=== PATIENT | male | born 1970 | race Caucasian/White ===

== ENCOUNTER 2016-05-08 06:53 | Day surgery (SDC) | payer BC, OTHER ==
[2016-05-07 14:42] VITALS: BMI 27.8
[2016-05-08] MEDS ORDERED: LIDOCAINE HCL/PF 2% SDV 5ML VIAL ONE (07:51)
[2016-05-08] MEDS ORDERED: SUCCINYLCHOLINE CHLORIDE 200 MG/10 ML VIAL ONE (07:51)
[2016-05-08] MEDS ORDERED: PROPOFOL 60 ML ONE (07:51)
[2016-05-08] MEDS ORDERED: ePHEDrine SULFATE 50 MG/1 ML AMPULE ONE (07:52)
[2016-05-08 08:35] VITALS: TEMP 98.3
[2016-05-08 08:56] VITALS: PULSE 89
[2016-05-08 09:09] VITALS: BP 147/87
--- NOTE | 2016-05-09 14:35 | PATH ---
Surgical Pathology Report Patient Name: ANA ROSA CHAUHAN [facility]. Rec. #: [id number] /Age/Gender: 1970 (Age: 45) / M Account: [id number] Location: [facility]-ENDOSCOPY Taken: 05/08/2016 Received: 05/08/2016 Reported: 05/09/2016 Physicians: Natasha Frazier M.D. Specimen(s) Received A: BX DISTAL ESOPHAGUS B: BX MID ESOPHAGUS Clinical History History of esophageal ulcer GERD-healed esophageal ulcer Final Diagnosis A. ESOPHAGUS, DISTAL, BIOPSY: SQUAMOUS EPITHELIUM WITH CHRONIC INFLAMMATION AND REFLUX TYPE CHANGES. NO COLUMNAR EPITHELIUM PRESENT (NO INTESTINAL METAPLASIA/WALLS'S ESOPHAGUS IDENTIFIED). B. ESOPHAGUS, MID, BIOPSY: SQUAMOUS EPITHELIUM WITH CHRONIC INFLAMMATION AND REFLUX TYPE CHANGES. NO EVIDENCE OF EOSINOPHILIC ESOPHAGITIS. Electronically Signed Segundo Norris M.D. Gross Description A. Received in formalin, labeled "biopsy distal esophagus" are 3 esquivel, irregular portions of soft tissue ranging from 0.1-0.4 cm in greatest dimension. The specimens are submitted in toto in one cassette. B. Received in formalin, labeled "biopsy midesophagus" are 2 esquivel, irregular portions of soft tissue measuring 0.3 and 0.4 cm in greatest dimension. The specimens are submitted in toto in one cassette. 05/08/201605/08/2016
== END 2016-05-08 09:11 | disposition home or self-care (01) ==
LOC: JASU-ENDO 06:53
PROVIDERS: ATTEND Internal Medicine Gastroenterology
PROC: 0DB28ZX Excision of Middle Esophagus, Via Natural or Artificial Opening Endoscopic, Diagnostic (ICD-10-PCS; 2016-05-08)
PROC: 0DB38ZX Excision of Lower Esophagus, Via Natural or Artificial Opening Endoscopic, Diagnostic (ICD-10-PCS; principal; 2016-05-08 08:00)
DX: K21.9 Gastro-esophageal reflux disease without esophagitis (principal); K44.9 Diaphragmatic hernia without obstruction or gangrene; R12 Heartburn; I10 Essential (primary) hypertension; Z86.010 Personal history of colon polyps; J45.909 Unspecified asthma, uncomplicated; J42 Unspecified chronic bronchitis; G47.30 Sleep apnea, unspecified; Z99.89 Dependence on other enabling machines and devices; J34.2 Deviated nasal septum
CPT/HCPCS: 88305-TC

== ENCOUNTER 2016-09-11 06:41 | Day surgery (SDC) | payer BC ==
[2016-09-10 13:11] VITALS: BMI 29.0
[2016-09-11] MEDS ORDERED: PROPOFOL 20 ML ONE ×3 (07:53)
[2016-09-11] MEDS ORDERED: LIDOCAINE HCL 2% (20ML MULTI-DOSE VIAL) NR ONE (07:53)
[2016-09-11 08:43] VITALS: TEMP 98.4
[2016-09-11 08:56] LABS: BASOPHIL 0.9 % (0-2.0); EOSINOPHIL 1.4 % (0-4.5); MCH 32.6 pg (25.7-33.7); MCHC 34.7 g/dl (32.0-35.9); MEAN CELL VOLUME 93.9 fl (80-96); MEAN PLT VOLUME 9.7 fl (7.5-11.1); PLATELET COUNT 258 K/MM3 (134-434); RDW 14.3 % (11.9-15.9)
[2016-09-11 09:18] VITALS: BP 126/73; PULSE 80
[2016-09-11 09:23] LABS: ANION GAP 7 (8-16); BILIRUBIN,TOTAL 0.9 mg/dL (0.2-1.0); CO2 32 mmol/L (21-32); CREATININE 0.7 mg/dL (0.7-1.3); GLUCOSE,RANDOM 87 mg/dL (74-106); SGPT/ALT 67 U/L (12-78); TOT PROT 7.6 g/dl (6.4-8.2)
[2016-09-11 09:24] LABS: ALK PHOS 69 U/L (45-117)
[2016-09-11 09:26] LABS: SGOT/AST 80 U/L (15-37)
--- NOTE | 2016-09-12 13:22 | PATH ---
Surgical Pathology Report Patient Name: ANA ROSA CHAUHAN [facility]. Rec. #: [id number] /Age/Gender: 1970 (Age: 45) / M Account: [id number] Location: [facility]-ENDOSCOPY Taken: 09/11/2016 Received: 09/11/2016 Reported: 09/12/2016 Physicians: Natasha Frazier M.D. Specimen(s) Received A: BX TERMINAL ILEUM B: BX CECUM C: BX RIGHT COLON D: BX TRANSVERSE COLON E: BX DESCENDING COLON F: BX SIGMOID G: BX RECTUM Clinical History Surveillance Ulcerative colitis Final Diagnosis A. TERMINAL ILEUM, BIOPSY: ILEUM MUCOSA WITH REACTIVE HYPERPLASIA OF MUCOSA ASSOCIATED LYMPHOID TISSUE. NO EVIDENCE OF ACTIVE INFLAMMATION, SIGINIFICANT ARCHITECTURAL DISTORTION, GRANULOMATA OR DYSPLASIA; NO INCREASE IN INTRAEPITHELIAL LYMPHOCYTES. B. COLON, CECUM, BIOPSY: COLONIC MUCOSA WITH FOCAL REACTIVE LYMPHOID AGGREGATE. NO EVIDENCE OF ACTIVE INFLAMMATION, SIGINIFICANT ARCHITECTURAL DISTORTION, GRANULOMATA OR DYSPLASIA; NO EVIDENCE OF MICROSCOPIC COLITIS. C. COLON, RIGHT, BIOPSY: COLONIC MUCOSA WITH REACTIVE LYMPHOID AGGREGATE AND MILD LAMINA PROPRIA EDEMA. NO EVIDENCE OF ACTIVE INFLAMMATION, SIGINIFICANT ARCHITECTURAL DISTORTION, GRANULOMATA OR DYSPLASIA; NO EVIDENCE OF MICROSCOPIC COLITIS. D. COLON, TRANSVERSE, BIOPSY: COLONIC MUCOSA WITH FOCAL MINIMAL CRYPT ALTERATION. NO EVIDENCE OF ACTIVE INFLAMMATION, GRANULOMATA OR DYSPLASIA. E. COLON, DESCENDING, BIOPSY: COLONIC MUCOSA WITHOUT SIGNIFICANT PATHOLOGIC CHANGES. NO EVIDENCE OF ACTIVE INFLAMMATION, SIGINIFICANT ARCHITECTURAL DISTORTION, GRANULOMATA OR DYSPLASIA; NO EVIDENCE OF MICROSCOPIC COLITIS. F. COLON, SIGMOID, BIOPSY: COLONIC MUCOSA WITH REACTIVE LYMPHOID AGGREGATES AND FOCAL MILD CRYPT ALTERATION. NO EVIDENCE OF ACTIVE INFLAMMATION, GRANULOMATA OR DYSPLASIA. G. RECTUM, BIOPSY: RECTAL MUCOSA WITH REACTIVE LYMPHOID AGGREGATES AND FOCAL MINIMAL CRYPT ALTERATION. NO EVIDENCE OF ACTIVE INFLAMMATION, GRANULOMATA OR DYSPLASIA. Comment: History of ulcerative colitis is noted. The histologic findings are compatible with quiescent colitis. Electronically Signed Segundo Norris M.D. Gross Description A. Received in formalin, labeled "biopsy terminal ileum" are two fragments of esquivel tissue with 0.3 cm in greatest dimension each. The specimen is submitted in toto in one cassette. B. Received in formalin, labeled "biopsy cecum one" are three fragments of esquivel tissue ranging from 0.2-0.3 cm in greatest dimension. The specimen is submitted in toto in one cassette. C. Received in formalin, labeled "biopsy right colon" are 4 fragments of esquivel tissue 0.2-0.3 cm in greatest dimension. The specimen is submitted in toto in one cassette. D. Received in formalin, labeled "biopsy transverse colon" are 3 esquivel fragments of tissue 0.3 cm in greatest dimension each. The specimen is submitted in toto in one cassette. E. Received in formalin, labeled "biopsy descending colon" are 4 esquivel fragments of tissue ranging from 0.2-0.4 cm in greatest dimension. The specimen is submitted in toto in one cassette. F. Received in formalin, labeled "biopsy sigmoid colon" are 5 fragments of tissue 0.2-0.4 cm in greatest dimension. The specimen is submitted in toto in one cassette. G. Received in formalin, labeled "biopsy rectum" are 2 fragments of tissue 0.4 cm in greatest dimension. The specimen is submitted in toto in one cassette. AF/09/11/2016 final/09/11/2016
== END 2016-09-11 09:37 | disposition home or self-care (01) ==
LOC: JASU-ENDO 06:41
PROVIDERS: ATTEND Internal Medicine Gastroenterology
PROC: 0DBE8ZX Excision of Large Intestine, Via Natural or Artificial Opening Endoscopic, Diagnostic (ICD-10-PCS; principal; 2016-09-11 08:00)
DX: Z12.11 Encounter for screening for malignant neoplasm of colon (principal)
CPT/HCPCS: 36415; 80053; 82306; 85025; 88305-TC

== ENCOUNTER 2017-09-17 07:03 | Day surgery (SDC) | payer BC ==
[2017-09-16 14:04] VITALS: BMI 28.1
[2017-09-17] MEDS ORDERED: PROPOFOL 20 ML ONE ×3 (08:01)
[2017-09-17 08:54] VITALS: TEMP 98.5
[2017-09-17 09:38] VITALS: BP 155/88; PULSE 81
--- NOTE | 2017-09-18 16:17 | PATH ---
Surgical Pathology Report Patient Name: ANA ROSA CHAUHAN [facility]. Rec. #: [id number] /Age/Gender: 1970 (Age: 46) / M Account: [id number] Location: [facility]-ENDOSCOPY Taken: 09/17/2017 Received: 09/17/2017 Reported: 09/18/2017 Physicians: Natasha Frazier M.D. Specimen(s) Received A: BX CECUM B: BX ILEOCECAL VALVE POLYPS C: BX RIGHT COLON D: BX TRANSVERSE COLON E: BX DESCENDING COLON F: BX SIGMOID G: BX RECTUM Clinical History History of ulcerative colitis Final Diagnosis A. CECUM, BIOPSY: COLONIC MUCOSA WITH MILD ACTIVE CHRONIC INFLAMMATION IN THE LAMINA PROPRIA, FOCAL ACUTE CRYPTITIS, AND REACTIVE LYMPHOID AGGREGATE. B. ILEOCECAL VALVE POLYPS, BIOPSY: POLYPOID COLONIC MUCOSA WITH NO DIAGNOSTIC ABNORMALITIES. C. RIGHT COLON, BIOPSY: COLONIC MUCOSA WITH FOCAL CRYPTAL DISTORTION. NO HISTOLOGIC EVIDENCE OF ACTIVE COLITIS. D. TRANSVERSE COLON, BIOPSY: COLONIC MUCOSA WITH REACTIVE LYMPHOID AGGREGATES. NO HISTOLOGIC EVIDENCE OF ACTIVE COLITIS. E. DESCENDING COLON, BIOPSY: COLONIC MUCOSA WITH FOCAL CRYPTAL DISTORTION. NO HISTOLOGIC EVIDENCE OF ACTIVE COLITIS. F. SIGMOID, BIOPSY: COLONIC MUCOSA WITH CRYPTAL DISTORTION AND REACTIVE LYMPHOID AGGREGATE. NO HISTOLOGIC EVIDENCE OF ACTIVE COLITIS. G. RECTUM, BIOPSY: COLONIC MUCOSA WITH REACTIVE LYMPHOID AGGREGATES. NO HISTOLOGIC EVIDENCE OF ACTIVE COLITIS. Electronically Signed Grace Chong M.D. Gross Description A. Received in formalin, labeled "cecum" are multiple esquivel, irregular portions of soft tissue measuring 0.6 cm. in greatest dimension. The specimens are submitted in toto in one cassette. B. Received in formalin, labeled "polyp ileocecal valve" are 3 esquivel, irregular portion of soft tissue measuring 0.3 cm. in greatest dimension. The specimens are submitted in toto in one cassette. C. Received in formalin, labeled "right colon" are 3 esquivel, irregular portions of soft tissue measuring 0.5 cm. in greatest dimension. The specimens are submitted in toto in one cassette. D. Received in formalin, labeled "transverse colon" are 3 esquivel, irregular portions of soft tissue measuring 0.4 cm. in greatest dimension. The specimens are submitted in toto in one cassette. E. Received in formalin, labeled "descending colon" are multiple esquivel, irregular portion of soft tissue measuring 0.6 cm. in greatest dimension. The specimens are submitted in toto in one cassette. F. Received in formalin, labeled "sigmoid" are multiple esquivel, irregular portions of soft tissue measuring 0.5 cm. in greatest dimension. The specimens are submitted in toto in one cassette. G. Received in formalin, labeled "rectum" are two esquivel, irregular portions of soft tissue measuring 0.5 cm. in greatest dimension. The specimens are submitted in toto in one cassette. __ AMNA/09/18/2017 aleisha/09/18/2017
== END 2017-09-17 09:45 | disposition home or self-care (01) ==
LOC: JASU-ENDO 07:03
PROVIDERS: ATTEND Internal Medicine Gastroenterology
PROC: 0DBC8ZX Excision of Ileocecal Valve, Via Natural or Artificial Opening Endoscopic, Diagnostic (ICD-10-PCS; principal; 2017-09-17 08:00)
DX: Z12.11 Encounter for screening for malignant neoplasm of colon (principal); K52.89 Other specified noninfective gastroenteritis and colitis; K63.5 Polyp of colon
CPT/HCPCS: 88305-TC

== ENCOUNTER 2018-09-23 07:10 | Day surgery (SDC) | payer BC | END 2018-09-23 10:15 | disposition home or self-care (01) | LOC: JASU-ENDO 07:10 ==

== ENCOUNTER 2020-07-19 05:21 | Day surgery (SDC) | payer BC ==
[2020-07-14 16:26] VITALS: BMI 29.0
[2020-07-19] MEDS ORDERED: KETAMINE HCL 200 MG/20 ML VIAL ONE (07:09)
[2020-07-19 09:59] VITALS: BP 135/92; PULSE 93; TEMP 16
== END 2020-07-19 10:09 | disposition home or self-care (01) ==
LOC: JASU-ENDO 05:21
PROVIDERS: ATTEND Internal Medicine Gastroenterology
PROC: 0DBL8ZX Excision of Transverse Colon, Via Natural or Artificial Opening Endoscopic, Diagnostic (ICD-10-PCS; 2020-07-19)
PROC: 0DBN8ZX Excision of Sigmoid Colon, Via Natural or Artificial Opening Endoscopic, Diagnostic (ICD-10-PCS; 2020-07-19)
PROC: 0DBP8ZX Excision of Rectum, Via Natural or Artificial Opening Endoscopic, Diagnostic (ICD-10-PCS; 2020-07-19)
PROC: 0DBM8ZX Excision of Descending Colon, Via Natural or Artificial Opening Endoscopic, Diagnostic (ICD-10-PCS; 2020-07-19)
PROC: 0DBH8ZX Excision of Cecum, Via Natural or Artificial Opening Endoscopic, Diagnostic (ICD-10-PCS; 2020-07-19)
PROC: 0DB28ZX Excision of Middle Esophagus, Via Natural or Artificial Opening Endoscopic, Diagnostic (ICD-10-PCS; 2020-07-19)
PROC: 0DB78ZX Excision of Stomach, Pylorus, Via Natural or Artificial Opening Endoscopic, Diagnostic (ICD-10-PCS; 2020-07-19)
PROC: 0DBK8ZX Excision of Ascending Colon, Via Natural or Artificial Opening Endoscopic, Diagnostic (ICD-10-PCS; principal; 2020-07-19 08:00)
DX: K29.50 Unspecified chronic gastritis without bleeding (principal); K21.00 Gastro-esophageal reflux disease with esophagitis, without bleeding; Z87.19 Personal history of other diseases of the digestive system; K64.8 Other hemorrhoids; K64.4 Residual hemorrhoidal skin tags; R12 Heartburn
CPT/HCPCS: 88305-TC; 88342-TC

== ENCOUNTER → 2021-07-25 | Day surgery (SDC) | payer BC ==
[2021-07-18 12:13] VITALS: BMI 30.2
[2021-07-25 08:32] VITALS: TEMP 98.6
[2021-07-25 09:05] VITALS: BP 143/89; PULSE 88
== END | disposition home or self-care (01) ==
LOC: JASU-ENDO 04:29
PROVIDERS: ATTEND Internal Medicine Gastroenterology
PROC: 0DBN8ZX Excision of Sigmoid Colon, Via Natural or Artificial Opening Endoscopic, Diagnostic (ICD-10-PCS; 2021-07-25)
PROC: 0DBP8ZX Excision of Rectum, Via Natural or Artificial Opening Endoscopic, Diagnostic (ICD-10-PCS; 2021-07-25)
PROC: 0DBB8ZX Excision of Ileum, Via Natural or Artificial Opening Endoscopic, Diagnostic (ICD-10-PCS; 2021-07-25)
PROC: 0DBM8ZX Excision of Descending Colon, Via Natural or Artificial Opening Endoscopic, Diagnostic (ICD-10-PCS; 2021-07-25)
PROC: 0DBH8ZX Excision of Cecum, Via Natural or Artificial Opening Endoscopic, Diagnostic (ICD-10-PCS; 2021-07-25)
PROC: 0DBK8ZX Excision of Ascending Colon, Via Natural or Artificial Opening Endoscopic, Diagnostic (ICD-10-PCS; principal; 2021-07-25 08:00)
DX: K51.90 Ulcerative colitis, unspecified, without complications (principal); D12.8 Benign neoplasm of rectum; Z86.010 Personal history of colon polyps

== ENCOUNTER 2022-12-09 05:06 | Day surgery (SDC) | payer BC ==
[2022-12-04 15:17] VITALS: BMI 30.7
[2022-12-09 09:36] VITALS: BP 145/93; PULSE 79; RESP 22; TEMP 95
== END 2022-12-09 09:45 | disposition home or self-care (01) ==
LOC: JASU-ENDO 05:06
PROVIDERS: ATTEND Internal Medicine Gastroenterology
PROC: 0DBL8ZX Excision of Transverse Colon, Via Natural or Artificial Opening Endoscopic, Diagnostic (ICD-10-PCS; 2022-12-09)
PROC: 0DBN8ZX Excision of Sigmoid Colon, Via Natural or Artificial Opening Endoscopic, Diagnostic (ICD-10-PCS; 2022-12-09)
PROC: 0DBP8ZX Excision of Rectum, Via Natural or Artificial Opening Endoscopic, Diagnostic (ICD-10-PCS; 2022-12-09)
PROC: 0DBF8ZX Excision of Right Large Intestine, Via Natural or Artificial Opening Endoscopic, Diagnostic (ICD-10-PCS; 2022-12-09)
PROC: 0DBB8ZX Excision of Ileum, Via Natural or Artificial Opening Endoscopic, Diagnostic (ICD-10-PCS; 2022-12-09)
PROC: 0DBM8ZX Excision of Descending Colon, Via Natural or Artificial Opening Endoscopic, Diagnostic (ICD-10-PCS; 2022-12-09)
PROC: 0DBH8ZX Excision of Cecum, Via Natural or Artificial Opening Endoscopic, Diagnostic (ICD-10-PCS; principal; 2022-12-09 08:00)
DX: Z12.11 Encounter for screening for malignant neoplasm of colon (principal); K52.9 Noninfective gastroenteritis and colitis, unspecified
CPT/HCPCS: 88305-TC

== ENCOUNTER 2024-07-26 05:50 | Day surgery (SDC) | payer BC ==
[2024-07-23 15:23] VITALS: BMI 27.1
[2024-07-26 09:24] VITALS: TEMP 98
[2024-07-26 09:25] VITALS: PULSE 82; RESP 16
[2024-07-26 09:27] VITALS: BP 120/78
== END 2024-07-26 10:15 | disposition home or self-care (01) ==
LOC: JASU-ENDO 05:50
PROVIDERS: ATTEND Internal Medicine Gastroenterology
PROC: 0DBL8ZX Excision of Transverse Colon, Via Natural or Artificial Opening Endoscopic, Diagnostic (ICD-10-PCS; 2024-07-26)
PROC: 0DBN8ZX Excision of Sigmoid Colon, Via Natural or Artificial Opening Endoscopic, Diagnostic (ICD-10-PCS; 2024-07-26)
PROC: 0DBP8ZX Excision of Rectum, Via Natural or Artificial Opening Endoscopic, Diagnostic (ICD-10-PCS; 2024-07-26)
PROC: 0DBM8ZX Excision of Descending Colon, Via Natural or Artificial Opening Endoscopic, Diagnostic (ICD-10-PCS; 2024-07-26)
PROC: 0DBH8ZX Excision of Cecum, Via Natural or Artificial Opening Endoscopic, Diagnostic (ICD-10-PCS; 2024-07-26)
PROC: 0DBK8ZX Excision of Ascending Colon, Via Natural or Artificial Opening Endoscopic, Diagnostic (ICD-10-PCS; principal; 2024-07-26 08:00)
DX: Z87.19 Personal history of other diseases of the digestive system (principal); K64.8 Other hemorrhoids; K51.80 Other ulcerative colitis without complications
CPT/HCPCS: 88305-TC